=== PATIENT | female | born 1995 | race Hispanic/Latino ===

== ENCOUNTER 2018-07-03 15:10 | Emergency (ER) | payer BC, OTHER ==
--- NOTE | 2018-07-03 16:09 | RAD REPORT ---
EXAM DESCRIPTION: Latrell Single View07/03/2018 3:55 pm CLINICAL HISTORY: Chest pain COMPARISON: none FINDINGS: The lungs appear clear of acute infiltrate. The heart is normal size IMPRESSION: No acute abnormalities displayed
[2018-07-03 16:12] LABS: Urine Blood NEGATIVE (NEG); Urine Glucose NEGATIVE (NEG); Urine Protein NEGATIVE (NEG)
[2018-07-03] MEDS ORDERED: FAMOTIDINE 20 MG/2 ML VIAL IV ONE (16:17)
[2018-07-03 16:42] LABS: Absolute Lymphocytes (CBC) 1.3 K/uL (0.7-4.9); Absolute Monocytes 0.8 K/uL (0.1-1.3); Absolute Neutrophil 6.8 K/uL (1.8-8.0); Basophils % 0.5 % (0-1.3); Eosinophils % 0.8 % (0-4.4); Lymphocytes % 14.7 % (15.3-44.8); MCH 30.5 pg (27.0-35.0); MCV 90.9 fL (80-100); MPV 9.1 fL (7.6-11.3); Monocytes % 8.6 % (3.3-12.3); RBC Red Blood Cell Count 4.29 M/uL (3.86-4.86)
--- NOTE | 2018-07-03 16:59 | EKG ---
Test Date: 2018-07-03 Test Time: 15:25:30 Supervising Bailiff: NIXON MEASUREMENT RESULTS: Intervals: Rate: 83 NM: 126 QRSD: 76 QT: 378 QTc: 444 [place]: P: 65 NM: 126 QRS: 72 T: 28 INTERPRETIVE STATEMENTS: Normal sinus rhythm with sinus arrhythmia Normal ECG No previous ECG available for comparison Electronically Signed On 07-03-18 16:58:48 CDT by Navi Terrazas
[2018-07-03 17:24] LABS: ALT/SGPT 20 U/L (12-78); AST/SGOT 19 U/L (15-37); Albumin 4.3 g/dL (3.4-5.0); Alkaline Phosphatase 78 U/L (45-117); BUN Blood Urea Nitrogen 9 mg/dL (7-18); Bicarbonate 24 mmol/L (21-32); Bilirubin Direct 0.2 mg/dL (0-0.2); Bilirubin Total 0.6 mg/dL (0.2-1.0); Glucose Level 80 mg/dL (74-106); Potassium 3.4 mmol/L (3.5-5.1); Protein, Total 8.3 g/dL (6.4-8.2); Sodium Level 139 mmol/L (136-145)
--- NOTE | 2018-07-03 17:39 | EDPHYS ---
Physician Documentation [facility] Name: Yaneth Farrell Age: 22 yrs Sex: Female : 1995 Arrival Date: 07/03/2018 Time: 15:12 Bed 28 Private MD: ED Physician Adam Espino HPI: 07/03 16:24 This 22 yrs old Female presents to ER via Ambulatory with complaints of Chest pm1 Pain, Anxiety. 16:24 The patient or guardian reports chest pain that is located primarily in the mid-sternal pm1 area. The pain does not radiate. Associated signs and symptoms: Pertinent positives: palpitations, anxiety, Pertinent negatives: abdominal pain, cough, diaphoresis, dizziness, headache, nausea, shortness of breath, vomiting. The chest pain is described as burning. Duration: The patient or guardian reports multiple episodes, that have now resolved. Modifying factors: The symptoms are alleviated by nothing. the symptoms are aggravated by nothing. Severity of pain: in the emergency department the pain has resolved. The patient has not experienced similar symptoms in the past. The patient has not recently seen a physician. onset two days ago. 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 - Social history:: Smoking status: Patient uses tobacco products, denies chronic smoking, but will smoke occasionally. - Ebola Screening: : Patient denies exposure to infectious person Patient denies travel to an Ebola-affected area in the 21 days before illness onset. ROS: 16:24 Constitutional: Negative for fever, chills, and weight loss, Eyes: Negative for injury, pm1 pain, redness, and discharge, ENT: Negative for injury, pain, and discharge, Neck: Negative for injury, pain, and swelling. 16:24 Respiratory: Negative for shortness of breath, cough, wheezing, and pleuritic chest pain, Abdomen/GI: Negative for abdominal pain, nausea, vomiting, diarrhea, and constipation, Back: Negative for injury and pain, : Negative for injury, bleeding, discharge, and swelling, MS/Extremity: Negative for injury and deformity, Skin: Negative for injury, rash, and discoloration. 16:24 Neuro: Negative for headache, weakness, numbness, tingling, and seizure. 16:24 Cardiovascular: Positive for chest pain, palpitations, Negative for edema, orthopnea. Exam: 16:24 Constitutional: This is a well developed, well nourished patient who is awake, alert, pm1 and in no acute distress. Head/Face: Normocephalic, atraumatic. Eyes: Pupils equal round and reactive to light, extra-ocular motions intact. Lids and lashes normal. Conjunctiva and sclera are non-icteric and not injected. Cornea within normal limits. Periorbital areas with no swelling, redness, or edema. ENT: Nares patent. No nasal discharge, no septal abnormalities noted. Tympanic membranes are normal and external auditory canals are clear. Oropharynx with no redness, swelling, or masses, exudates, or evidence of obstruction, uvula midline. Mucous membranes moist. Neck: Trachea midline, no thyromegaly or masses palpated, and no cervical lymphadenopathy. Supple, full range of motion without nuchal rigidity, or vertebral point tenderness. No Meningismus. 16:24 Cardiovascular: Regular rate and rhythm with a normal S1 and S2. No gallops, murmurs, or rubs. Normal PMI, no JVD. No pulse deficits. Respiratory: Lungs have equal breath sounds bilaterally, clear to auscultation and percussion. No rales, rhonchi or wheezes noted. No increased work of breathing, no retractions or nasal flaring. Abdomen/GI: Soft, non-tender, with normal bowel sounds. No distension or tympany. No guarding or rebound. No evidence of tenderness throughout. Back: No spinal tenderness. No costovertebral tenderness. Full range of motion. Skin: Warm, dry with normal turgor. Normal color with no rashes, no lesions, and no evidence of cellulitis. MS/ Extremity: Pulses equal, no cyanosis. Neurovascular intact. Full, normal range of motion. 16:24 Chest/axilla: Inspection: normal, Palpation: tenderness, of the mid-sternal area, that totally reproduces the patient's complaints. 16:24 Neuro: Orientation: is normal, Motor: is normal, moves all fours, Sensation: is normal, no obvious gross deficits. 16:24 NSR with sinus arrhythmia, Normal ECG, 83 BPM pm1 Vital Signs: 15:12 BP 127 / 80; Pulse 97; Resp 21; Temp 98.5(O); Pulse Ox 100% on R/A; Weight 63.05 kg; ss Height 5 ft. 0 in. (152.40 cm); Pain 4/10; 16:23 BP 117 / 82; Pulse 85; Pulse Ox 100% on R/A; rv 17:34 BP 104 / 83 LA Sitting (auto/reg); Pulse 70; Resp 20 S; Pulse Ox 100% on R/A; jp3 15:12 Body Mass Index 27.15 (63.05 kg, 152.40 cm) ss MDM: 15:13 Patient medically screened. pm1 16:28 Data reviewed: vital signs. Data interpreted: Pulse oximetry: on room air is 100 %. pm1 Interpretation: normal. 17:30 Differential diagnosis: acute myocardial infarction, anxiety, chest wall pain, pm1 cholecystitis, Cholelithiasis costochondritis, gastroesophageal reflux disease (GERD), pneumonia. 17:38 Counseling: I had a detailed discussion with the patient and/or guardian regarding: the pm1 historical points, exam findings, and any diagnostic results supporting the discharge/admit diagnosis, lab results, radiology results, the need for outpatient follow up, to return to the emergency department if symptoms worsen or persist or if there are any questions or concerns that arise at home. 17:38 ED course: Burning sensation has improved with Pepcid given in ER. pm1 07/03 15:40 Order name: Basic Metabolic Panel; Complete Time: 17:30 pm07/03 15:40 Order name: CBC with Diff; Complete Time: 17:19 pm07/03 15:40 Order name: LFT's; Complete Time: 17:30 pm1 07/03 15:40 Order name: Troponin (emerg Dept Use Only); Complete Time: 17:30 pm1 07/03 15:40 Order name: D-Dimer; Complete Time: 17:19 pm07/03 15:47 Order name: Urine Dipstick--Ancillary (enter results); Complete Time: 16:24 bd 07/03 15:32 Order name: EKG; Complete Time: 15:33 ss 07/03 15:32 Order name: EKG - Nurse/Tech; Complete Time: 15:32 ss 07/03 15:40 Order name: Urine Test (obtain specimen); Complete Time: 15:43 pm1 07/03 15:40 Order name: XRAY Chest (1 view); Complete Time: 16:11 pm1 07/03 15:40 Order name: Cardiac monitoring; Complete Time: 15:43 pm1 07/03 15:40 Order name: IV Saline Lock; Complete Time: 16:28 pm1 07/03 15:47 Order name: Urine --Ancillary (enter results); Complete Time: 16:24 bd 07/03 15:40 Order name: Labs collected and sent; Complete Time: 16:28 pm1 07/03 15:40 Order name: Urine Dipstick-Ancillary (obtain specimen); Complete Time: 16:02 pm1 Administered Medications: 16:28 Drug: Pepcid 20 mg Route: IVP; Site: right forearm; rv 18:11 Follow up: Response: No adverse reaction rv Disposition: 07/04 06:32 Co-signature as Attending Physician, Adam Espino MD I agree with the assessment and rupali plan of care. Disposition: 07/03/18 17:38 Discharged to Home. Impression: Chest pain, unspecified. - Condition is Stable. - Discharge Instructions: Nonspecific Chest Pain. - Prescriptions for Pepcid 20 mg Oral Tablet - take 1 tablet by ORAL route every 12 hours for 10 days; 20 tablet. - Medication Reconciliation Form, Thank You Letter, Antibiotic Education, Prescription Opioid Use form. - Follow up: Emergency Department; When: As needed; Reason: Worsening of condition. Follow up: Private Physician; When: 2 - 3 days; Reason: Recheck today's complaints, Continuance of care, Re-evaluation by your physician. - Problem is new. - Symptoms have improved. Signatures: Dispatcher [employer] Adam Hardy MD MD cha Smirch, Shelby RN RN ss Sean Matthews, CITY SUPERINTENDENT CITY SUPERINTENDENT pm1 Adriano Walker RN RN rv Corrections: (The following items were deleted from the chart) 07/03 18:13 17:38 07/03/2018 17:38 Discharged to Home. Impression: Chest pain, unspecified. rv Condition is Stable. Forms are Medication Reconciliation Form, Thank You Letter, Antibiotic Education, Prescription Opioid Use. Follow up: Emergency Department; When: As needed; Reason: Worsening of condition. Follow up: Private Physician; When: 2 - 3 days; Reason: Recheck today's complaints, Continuance of care, Re-evaluation by your physician. Problem is new. Symptoms have improved. pm1
--- NOTE | 2018-07-03 17:39 | ER ---
Nurse's Notes [facility] Name: Yaneth Farrell Age: 22 yrs Sex: Female : 1995 Arrival Date: 07/03/2018 Time: 15:12 Bed 28 Private MD: Diagnosis: Chest pain, unspecified Presentation: 07/03 15:13 Presenting complaint: Patient states: chest burning x 2 days, worse today when driving ss and now tingling to bilateral hands. Transition of care: patient was not received from another setting of care. Onset of symptoms was July 01, 2018. Risk Assessment: Do you want to hurt yourself or someone else? Patient reports no desire to harm self or others. Initial Sepsis Screen: Does the patient meet any 2 criteria? RR > 20 per min. HR > 90 bpm. Does the patient have a suspected source of infection? No. Patient's initial sepsis screen is negative. Care prior to arrival: None. 15:13 Method Of Arrival: Ambulatory ss 15:13 Acuity: ANNA 3 ss Triage Assessment: 15:14 General: Appears uncomfortable, slender, Behavior is anxious. 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 - Social history:: Smoking status: Patient uses tobacco products, denies chronic smoking, but will smoke occasionally. - Ebola Screening: : Patient denies exposure to infectious person Patient denies travel to an Ebola-affected area in the 21 days before illness onset. Screenin:35 Abuse screen: Denies threats or abuse. Denies injuries from another. Nutritional rv screening: No deficits noted. Tuberculosis screening: No symptoms or risk factors identified. Fall Risk None identified. Assessment: 15:20 General: Appears in no apparent distress. comfortable, Behavior is calm, cooperative. rv 15:20 Pain: Pain does not radiate. Pain began 2 hours ago. Neuro: Level of Consciousness is rv awake, alert, obeys commands, Oriented to person, place, time, situation. Cardiovascular: Capillary refill < 3 seconds. Cardiovascular: Heart tones S1 S2 present. Respiratory: Airway is patent. GI: No signs and/or symptoms were reported involving the gastrointestinal system. : No signs and/or symptoms were reported regarding the genitourinary system. EENT: No signs and/or symptoms were reported regarding the EENT system. Derm: Skin is intact. Vital Signs: 15:12 BP 127 / 80; Pulse 97; Resp 21; Temp 98.5(O); Pulse Ox 100% on R/A; Weight 63.05 kg; ss Height 5 ft. 0 in. (152.40 cm); Pain 4/10; 16:23 BP 117 / 82; Pulse 85; Pulse Ox 100% on R/A; rv 17:34 BP 104 / 83 LA Sitting (auto/reg); Pulse 70; Resp 20 S; Pulse Ox 100% on R/A; jp3 15:12 Body Mass Index 27.15 (63.05 kg, 152.40 cm) ED Course: 15:12 Patient arrived in ED. ss 15:12 Arm band placed on right wrist. ss 15:13 Sean Matthews NP is PHCP. pm1 15:13 Adam Espino MD is Attending Physician. pm1 15:14 Triage completed. ss 15:35 Patient has correct armband on for positive identification. Bed in low position. Call rv light in reach. Side rails up X 1. Pulse ox on. NIBP on. personnel monitor on. 15:35 Patient maintains SpO2 saturation greater than 95% on room air. rv 15:38 EKG done, by simulation tech. reviewed by Sean Matthews NP. sm3 15:55 XRAY Chest (1 view) In Process Unspecified. EDMS 17:00 Inserted saline lock: 22 gauge in right antecubital area, using aseptic technique. rv 18:11 No provider procedures requiring assistance completed. rv 18:12 IV discontinued, bleeding controlled, No redness/swelling at site. Pressure dressing rv applied. Administered Medications: 16:28 Drug: Pepcid 20 mg Route: IVP; Site: right forearm; rv 18:11 Follow up: Response: No adverse reaction rv Outcome: 17:38 Discharge ordered by . pm1 18:12 Discharged to home ambulatory. rv 18:12 Condition: good 18:12 Discharge instructions given to patient, Instructed on discharge instructions, follow up and referral plans. medication usage, Prescriptions given X 2. 18:13 Patient left the ED. rv Signatures: Dispatcher [employer] EDMS Ignacia Smallwood RN RN ss Sean Matthews, ACID MIXER ACID MIXER pm1 Alma Rice sm3 Adriano Walker RN RN rv Bethel Arroyo jp3
[2018-07-03 18:48] VITALS: TEMP 98.5; O2SAT 100
[2018-07-03 18:50] VITALS: BP 104/83
== END 2018-07-03 18:13 | disposition home or self-care (01) ==
LOC: ER 15:10
DX: R07.9 Chest pain, unspecified (principal); F41.9 Anxiety disorder, unspecified; Z72.0 Tobacco use
CPT/HCPCS: 36415; 71045; 80048; 80076; 81003; 81025; 84484; 85025; 85379; 93005; 96374; 99285